=== PATIENT | male | born 1965 | race Caucasian/White ===

== ENCOUNTER 2025-08-18 06:03 | Day surgery (SDC) | payer BC, SELFPAY ==
[2025-07-20 09:04] VITALS: BMI 25.0
[2025-07-20 09:23] LABS: Hematocrit 44.8 % (39.0-52.0); Hemoglobin 15.0 g/dL (13.0-18.0); Mean Corp Hgb Conc. 33.5 g/dL (33.0-37.0); Mean Corpuscular Volume 88.9 fL (80.0-94.0); Nucleated Red Blood Cells % 0 % (-); Platelet Count 250 10^3/uL (130-400); Red Cell Dist. Width 12.9 % (11.5-14.5)
[2025-07-20 09:26] LABS: INR 0.92; PT 12.8 Sec (11.4-14.6)
[2025-07-20 09:49] LABS: ALT (SGPT) 46 U/L (0-50); AST (SGOT) 26 U/L (17-59); Albumin 4.5 g/dl (3.5-5.0); Alkaline Phosphatase 60 U/L (38-126); Blood Urea Nitrogen 25 mg/dl (9-20); Calcium 9.3 mg/dl (8.4-10.2); Carbon Dioxide 29 mmol/L (22-30); Chloride 107 mmol/L (98-107); Estimated Creatinine Clearance 63 ml/min; Glucose 102 mg/dl (70-99); Magnesium 2.4 mg/dl (1.6-2.3); Potassium 4.4 mmol/L (3.5-5.1); Sodium 141 mmol/L (135-145); Total Protein 7.3 g/dl (6.3-8.2); eGFR > 60.00
[2025-08-18] VITALS (14 sets, daily range): BP systolic 104–159; BP diastolic 40–100
[2025-08-18 08:49] LABS: ACT-LR - POC 256 Seconds (116-155)
--- NOTE | 2025-08-18 09:08 | ITS.CL.ABL ---
Liability Claims Representative - Ablation
Ablation
Procedure Report:
ELECTROPHYSIOLOGY ABLATION STUDY
DATE::August 18, 2025�����������������������������REFERRING: Dr. Sea Cárdenas
INDICATION: Paroxysmal supraventricular tachycardia in the form of atrial fibrillation.� Prior pulmonary vein isolation and CTI flutter ablation at [facility]
HISTORY: See H and P.��As above
ANTIARRHYTHMIC DRUG: Amiodarone
PRE-PROCEDURE NGUYEN: No intracardiac thrombus
PRESENTING RHYTHM: Sinus bradycardia
'TIME-OUT':��called and confirmed.
SEDATION/ANESTHESIA:��provided via the anesthesia department using general anesthesia (LMA).
INTRAVENOUS/ARTERIAL ACCESS:
Right femoral venous -8Fr
Left femoral venous - 8 Fr, 6 Fr
Ultrasound guidance for bilateral femoral vein access was utilized by me to obtain access with demonstration of normal anatomy
CHADS-VASC Score:
HAS-Bled Score
PROCEDURE:
1.��A decapolar CS catheter was placed within the CS for mapping and pacing.��This was also used as the reference catheter for the 3-D map.
2. The intracardiac ultrasound catheter was positioned in the RA to identify the FO for targeting of transseptal puncture, assist��in identification of the pulmonary vein ostia, monitoring pre and post ablation pulmonary vein flow velocities,
monitoring for 'bubble' formation during RF application as a sign of thermal injury,��and to monitor for pericardial effusion during mapping and ablation procedure.���Left atrial size, LV ejection fraction, and pulmonary vein flows were monitored
pre and post ablation procedure. The other valves were inspected and found to be free of significant regurgitation or stenosis.
3.��Half of the calculated heparin bolus was administered prior to the first transeptal puncture.��Transseptal puncture was performed to diagnose RA and LA pressure so that safety of LA mapping and ablation could be further assessed, and to access
the left atrium and pulmonary veins for mapping and ablation.��This entailed advancing an 10 Irish steerable sheath with dilator into the superior vena cava and withdrawing both (monitoring intracardiac ultrasound, fluoroscopy and tip pressure)
with the tip oriented toward the atrial septum.��The fossa ovalis was engaged (indicated by sudden displacement of the sheath tip as well as tenting of the fossa seen on intracardiac ultrasound).��Left atrial access required a pass with the
Brockenbrough needle extended.��Left atrial catheter position was confirmed by pressure monitoring (RA mean pressure 2 mm Hg and LA mean presure 8 mm Hg at transseptal and 15 minutes into left atrial access we answered with a total of 1000 cc of
hydration), LA saturation (99%),��as well as fluoroscopy.��The sheath was advanced over the dilator and positioned in the left atrium.��This procedure was repeated for the Agilis sheath.��The remainder of the calculated heparin bolus was
administered and heparin was
infused to maintain ACT at 300 -350 seconds throughout the case. 0.2 mg of glycopyrrolate was given after transseptal.
4.��RA pacing was performed via the proximal decapolar poles and LA pacing was performed via the distal decapolr poles.
5. A quadrapolar catheter was first positioned at the His position for His Bundle recording which was tagged via the [email or web address], and then passed to the RVA for RV pacing and recording.
6. The 9 mm lattice catheter was placed in each of the LIPV, LSPV, RSPV and the RIPV.��
7.��Next, a 3-D map was created using [employer].���A 3-D reconstructed CT image was compared to the 3-D [employer] map to assist in anatomic interpretation, mapping and ablation.
8. After transseptal puncture we interrogated each of the 4 pulm veins and the posterior wall with the lattice catheter. There was reconnection in all 4 of the pulmonary veins. The right pulmonary veins had focal connection in the posterior and
septal jasmeet. The left superior pulmonary vein was connected circumferentially and the left inferior pulmonary vein was connected at the jasmeet. We performed wide morongo area ablation around the left pulmonary veins and right pulmonary veins and
then added a posterior wall box lesion set with roofline and floor line connecting the wide morongo ablation lines rendering entrance and exit block in all 4 pulmonary veins as well as the roof posterior wall floor of the left atrium.
9. The chronic CTI flutter ablation from prior December 2024 procedure demonstrated persistent bidirectional block intra isthmus conduction time 145 ms with wide split double potentials across the CTI flutter line.
TOTAL FLOURO TIME: 7.3 minutes 90 mGy
TOTAL RF DURATION: 0 minutes
REVERSAL OF HEPARIN: 35 mg of protamine, slow IV administration
COMPLICATIONS:
None
Intracardiac US shows no pericardial effusion post ablation.
SUMMARY:��
Complex left atrial mapping and ablation.
Reisolation of all 4 pulmonary veins and posterior wall isolation as above. Prior CTI flutter ablation with persistent bidirectional block.
RECOMMENDATIONS:
1. Ambulate in 4 hours
2. Resume anticoagulation
3.��Discontinue amiodarone
4.� Consider same-day discharge
Copy to: Dr. Sea Cárdenas
--- NOTE | 2025-08-18 14:50 | W.PN.UPDATE ---
Update Note
Progress Note Update
59 yo WM s/p PVI (same day). He denies cp, sob, lydia diet, voiding, amb w/o dizziness, EKG SR, b/l groins c/d/i no HT, soft. He will resume Eliquis tonight. We will stop Amiodarone. Activity restrictions reviewed. He will f/u Dr. Cárdenas in 3 mo.
He is for d/c home after 2p if groins stable.
== END 2025-08-18 14:35 | disposition home or self-care (01) ==
LOC: CATH 06:03
PROVIDERS: ATTENDING PHYSICIAN Internal Medicine Cardiovascular Disease; FAMILY PHYSICIAN Internal Medicine; OTHER PHYSICIAN Internal Medicine Cardiovascular Disease
DX: Z98.890 Other specified postprocedural states (principal); I48.0 Paroxysmal atrial fibrillation; Z79.899 Other long term (current) drug therapy; I47.10 Supraventricular tachycardia, unspecified; Z79.01 Long term (current) use of anticoagulants; I48.92 Unspecified atrial flutter
CPT/HCPCS: C1894; C1733; C1766; C1759; 36415; 80053; 83735; 85025; 85347; 85610; 86850; 86900; 86901; 93005; 93656; 93657; C1892